=== PATIENT | male | born 1950 | race African-American/Black ===

== ENCOUNTER 2019-01-22 18:30 | Inpatient (IN) | payer MEDICARE, OTHER ==
[~2019-01-22] VITALS: Ht 185.4 cm; Wt 81.6 kg
[2019-01-22] MEDS ORDERED: ACETAMINOPHEN 650MG SUPP PR STA (19:01)
[2019-01-22] MEDS ORDERED: LORAZEPAM 2MG/ML CPJ ONE (19:10)
[2019-01-22 19:12] LABS: BASOPHILS % 0.1 % (0.0-2.0); HEMATOCRIT. 42.8 % (42.0-52.0); HEMOGLOBIN. 13.6 g/dL (14.0-18.0); LYMPHOCYTES % 14.9 % (20.0-50.0); MEAN CORPUSCULAR HEMOGLOBIN 30.2 pg (28.0-32.0); MEAN PLATELET VOLUME 10.3 fl (7.4-10.4); MONOCYTES % 5.4 % (2.0-8.0); NEUTROPHILS % 79.6 % (40.0-76.0); PLATELET 214 x1000/uL (130-400); RED CELL DISTRIBUTION WIDTH 15.9 % (11.6-14.6)
[2019-01-22] MEDS ORDERED: LORAZEPAM 2MG/ML CPJ IV ONE (19:15)
[2019-01-22] MEDS ORDERED: SODIUM CHLORIDE 0.9% 1000ML BAG (SEPSIS BOLUS) IV ONE (19:15)
[2019-01-22] MEDS ORDERED: PIPERACILLIN/TAZ 3.375G PREMIX 50 ML IV ONE (19:15)
[2019-01-22] MEDS ORDERED: VANCOMYCIN 1 G PREMIX 200 ML IV ONE (19:15)
[2019-01-22 19:19] LABS: CHLORIDE 131 mEq/L (98-107)
[2019-01-22 19:28] LABS: INR 1.4
[2019-01-22] MEDS ORDERED: LEVETIRACETAM 1000MG/100ML 100 ML IV ONE (20:45)
[2019-01-23 00:05] LABS: CLARITY URINE CLEAR (CLEAR); COLOR URINE YELLOW (YELLOW); KETONES URINE NEGATIVE (NEGATIVE); LEUKOCYTE ESTERASE URINE TRACE (NEGATIVE); NITRITE URINE NEGATIVE (NEGATIVE); OCCULT BLOOD URINE 2+ (NEGATIVE); PROTEIN URINE TRACE (NEGATIVE); SPECIFIC GRAVITY URINE 1.031 (1.005-1.030)
[2019-01-23] MEDS: SODIUM CHLORIDE 0.9% 1,000 ML IV SCH ×2 (07:04→12:46)
[2019-01-23] MEDS ORDERED: CLONIDINE 0.1MG TABLET PO PRN (08:30)
[2019-01-23] MEDS ORDERED: HYDROCODONE/ACETAMINOPHEN 10/325MG TABLET PO PRN (08:30)
[2019-01-23] MEDS ORDERED: MAGNESIUM/ALUMINUM HYDROXIDE/SIMETHICONE 30ML UDC PO PRN (08:30)
[2019-01-23] MEDS ORDERED: NA PHOS,M-B/NA PHOS,DI-BA ENEMA 118ML PR PRN (08:30)
[2019-01-23] MEDS ORDERED: ONDANSETRON HCL 4MG/2ML INJ IV PRN (08:30)
[2019-01-23] MEDS ORDERED: IPRATROPIUM/ALBUTEROL 0.5-3(2.5)MG/3ML NEB INH PRN (08:30)
[2019-01-23] MEDS ORDERED: VANCOMYCIN 1 G PREMIX 200 ML IV SCH (08:30)
[2019-01-23] MEDS ORDERED: GUAIFENESIN 200MG/10ML SUGAR FREE UDC PO PRN (08:30)
[2019-01-23] MEDS ORDERED: DIPHENHYDRAMINE 50MG/ML VIAL IV PRN (08:30)
[2019-01-23] MEDS ORDERED: ACETAMINOPHEN 650MG/20.3ML UDC GT PRN (08:30)
[2019-01-23] MEDS ORDERED: ACETAMINOPHEN 325MG TABLET PO PRN (08:30)
[2019-01-23] MEDS ORDERED: ACETAMINOPHEN 650MG SUPP PR PRN (08:30)
[2019-01-23] MEDS ORDERED: HYDROCODONE/ACETAMINOPHEN 5/325MG TABLET PO PRN (08:30)
[2019-01-23] MEDS ORDERED: DOCUSATE SODIUM 100MG CAPSULE PO PRN (08:30)
[2019-01-23] MEDS ORDERED: NOREPINEPHRINE 4 MG in DEXT 5% WATER 246 ML IV ONE (08:45)
[2019-01-23 08:52] LABS: BASOPHILS % 0.2 % (0.0-2.0); HEMATOCRIT. 43.9 % (42.0-52.0); HEMOGLOBIN. 13.8 g/dL (14.0-18.0); MEAN CORPUSCULAR HEMOGLOBIN 29.9 pg (28.0-32.0); MEAN CORPUSCULAR VOLUME 94.9 fL (80.0-94.0); MEAN PLATELET VOLUME 9.7 fl (7.4-10.4); MONOCYTES % 6.5 % (2.0-8.0); NEUTROPHILS % 79.3 % (40.0-76.0); PLATELET 170 x1000/uL (130-400); RED BLOOD CELL COUNT 4.62 mill/uL (4.7-6.1); RED CELL DISTRIBUTION WIDTH 15.7 % (11.6-14.6)
[2019-01-23 08:54] LABS: CHLORIDE 134 mEq/L (98-107)
[2019-01-23 09:48] LABS: BG CARBOXYHEMOGLOBIN 0.2 % (0.5-1.5); BG DEOXYHEMOGLOBIN 3.2 % (0.0-5.0); BG FRACTION INSPIRED OXYGEN 99.8; BG METHEMOGLOBIN 0.2 % (0.0-1.5); BG OXYGEN SATURATION 96.8 % (92.0-98.5); BG OXYHEMOGLOBIN 96.4 % (94.0-97.0); BG PCO2 31.1 mmHg (35.0-45.0); BG PH 7.448 (7.350-7.450); BG PO2 86.6 mmHg (75.0-100.0); BG SAMPLE SITE RIGHT RADIAL; BG TOTAL HEMOGLOBIN 13.9 g/dL (12.0-18.0); BG VENT MODE MASK - NRB
[2019-01-23 12:00] VITALS: BP 52/27
[2019-01-23] MEDS ORDERED: DEXTROSE 5% WATER 1,000 ML IV ONE (12:30)
[2019-01-23] MEDS ORDERED: LORAZEPAM 2MG/ML CPJ IV PRN (12:30)
[2019-01-23] MEDS ORDERED: IPRATROPIUM/ALBUTEROL 0.5-3(2.5)MG/3ML NEB INH SCH (12:30)
[2019-01-23 13:00] VITALS: BP 52/27
[2019-01-23] MEDS ORDERED: LEVETIRACETAM 500 MG in SODIUM CHLORIDE 0.9% 100 ML IV NR (13:30)
[2019-01-23] MEDS: SODIUM CHLORIDE 0.9% INJ 3ML FLUSH IVF SCH (14:00)
[2019-01-23 16:00] VITALS: BP 89/64
[2019-01-23] MEDS: PIPERACILLIN/TAZ 3.375G PREMIX 50 ML IV SCH (16:37)
[2019-01-23] MEDS: ENOXAPARIN 40MG/0.4ML SYR SUBCUT SCH (16:38)
[2019-01-23 16:56] LABS: CHLORIDE 138 mEq/L (98-107)
[2019-01-23 17:02] LABS: CREATINE KINASE MB FRACTION 10.6 ng/mL (0.5-3.6)
[2019-01-23] MEDS ORDERED: RISP2 MT (17:26)
[2019-01-23] MEDS ORDERED: PARO25TA15 MT (17:26)
[2019-01-23] MEDS ORDERED: PIMA17TA MT (17:26)
[2019-01-23] MEDS ORDERED: MEMA10TA2 MT (17:26)
[2019-01-23] MEDS ORDERED: TRAZ-213 MT (17:26)
[2019-01-23] MEDS ORDERED: TAMS0.4C31 MT (17:26)
[2019-01-23] MEDS ORDERED: ATOR20TA65 MT (17:26)
[2019-01-23] MEDS ORDERED: DOCU-138 MT (17:26)
[2019-01-23] MEDS ORDERED: MULT-1116 MT (17:26)
[2019-01-23] MEDS ORDERED: ALLO300T2 MT (17:26)
[2019-01-23] MEDS ORDERED: FINA1TAB18 MT (17:26)
[2019-01-23] MEDS: DEXTROSE 5% WATER 1,000 ML IV SCH (18:08)
[2019-01-23 20:00] VITALS: BP 102/67
[2019-01-23] MEDS ORDERED: POTASSIUM CHLORIDE INJ 40 MEQ in DEXT 5% WATER 500 ML IV NR (20:00)
[2019-01-23] MEDS: LEVETIRACETAM 500 MG in SODIUM CHLORIDE 0.9% 100 ML IV SCH (21:20)
[2019-01-23] MEDS: VANCOMYCIN 1250MG in DEXTROSE 5% WATER 250ML IV SCH (22:24)
[2019-01-23 23:46] LABS: CREATINE KINASE MB FRACTION 12.7 ng/mL (0.5-3.6)
[2019-01-24] VITALS: BP 99/70
[2019-01-24] MEDS: DEXTROSE 5% WATER 1,000 ML IV SCH ×4 (02:29→22:55)
[2019-01-24] MEDS: PIPERACILLIN/TAZ 3.375G PREMIX 50 ML IV SCH ×6 (02:34→22:56)
[2019-01-24 04:00] VITALS: BP 101/65
[2019-01-24] MEDS: SODIUM CHLORIDE 0.9% INJ 3ML FLUSH IVF SCH ×3 (06:00→22:57)
[2019-01-24 06:51] LABS: BASOPHILS % 0.1 % (0.0-2.0); HEMATOCRIT. 41.3 % (42.0-52.0); HEMOGLOBIN. 13.2 g/dL (14.0-18.0); LYMPHOCYTES % 15.6 % (20.0-50.0); MEAN CORPUSCULAR HEMOGLOBIN 30.1 pg (28.0-32.0); MONOCYTES % 3.6 % (2.0-8.0); NEUTROPHILS % 80.7 % (40.0-76.0); PLATELET 149 x1000/uL (130-400); RED BLOOD CELL COUNT 4.39 mill/uL (4.7-6.1); RED CELL DISTRIBUTION WIDTH 15.4 % (11.6-14.6)
[2019-01-24 07:04] LABS: CHLORIDE 136 mEq/L (98-107)
[2019-01-24 07:11] LABS: PHOSPHORUS 2.1 mg/dL (2.5-4.9)
[2019-01-24 07:13] LABS: LDL CHOLESTEROL 35 mg/dL (5-100)
[2019-01-24 07:16] LABS: HDL CHOLESTEROL 10 mg/dL (40-59)
[2019-01-24 08:00] VITALS: BP_SYST 59
[2019-01-24] MEDS: LEVETIRACETAM 500 MG in SODIUM CHLORIDE 0.9% 100 ML IV SCH ×2 (08:15→21:22)
[2019-01-24] MEDS: VANCOMYCIN 1250MG in DEXTROSE 5% WATER 250ML IV SCH ×2 (09:49→20:19)
[2019-01-24] MEDS ORDERED: KCL 20MEQ/100ML PREMIX 100 ML IV NR (10:30)
[2019-01-24 12:00] VITALS: BP 110/67
[2019-01-24] MEDS: ENOXAPARIN 40MG/0.4ML SYR SUBCUT SCH (12:02)
[2019-01-24 16:00] VITALS: BP 119/54
[2019-01-24 20:00] VITALS: BP 176/69
[2019-01-24] MEDS: MORPHINE SULFATE 4 MG/ML CPJ (NOT FOR IM USE) IV PRN (20:21)
[2019-01-25] VITALS: BP 98/49
[2019-01-25 04:00] VITALS: BP 126/67
[2019-01-25] MEDS: PIPERACILLIN/TAZ 3.375G PREMIX 50 ML IV SCH ×2 (04:06→13:09)
[2019-01-25] MEDS: MORPHINE SULFATE 4 MG/ML CPJ (NOT FOR IM USE) IV PRN (04:32)
[2019-01-25 05:59] LABS: BASOPHILS % 0.2 % (0.0-2.0); EOSINOPHILS % 0.1 % (0.0-5.0); HEMATOCRIT. 41.2 % (42.0-52.0); HEMOGLOBIN. 13.3 g/dL (14.0-18.0); LYMPHOCYTES % 12.7 % (20.0-50.0); MEAN CORPUSCULAR HEMOGLOBIN 30.1 pg (28.0-32.0); MEAN CORPUSCULAR VOLUME 93.2 fL (80.0-94.0); MEAN PLATELET VOLUME 10.2 fl (7.4-10.4); MONOCYTES % 2.6 % (2.0-8.0); NEUTROPHILS % 84.4 % (40.0-76.0); PLATELET 168 x1000/uL (130-400); RED BLOOD CELL COUNT 4.43 mill/uL (4.7-6.1); RED CELL DISTRIBUTION WIDTH 15.1 % (11.6-14.6)
[2019-01-25] MEDS: SODIUM CHLORIDE 0.9% INJ 3ML FLUSH IVF SCH ×2 (06:20→14:20)
[2019-01-25 06:28] LABS: CHLORIDE 126 mEq/L (98-107)
[2019-01-25 06:45] LABS: PHOSPHORUS 1.8 mg/dL (2.5-4.9)
[2019-01-25 08:00] VITALS: BP 101/67
[2019-01-25] MEDS: VANCOMYCIN 1250MG in DEXTROSE 5% WATER 250ML IV SCH (08:02)
[2019-01-25] MEDS: LEVETIRACETAM 500 MG in SODIUM CHLORIDE 0.9% 100 ML IV SCH ×2 (10:02→22:01)
[2019-01-25 11:15] VITALS: BP 98/52
[2019-01-25] MEDS ORDERED: MORPHINE SULFATE 4 MG/ML CPJ (NOT FOR IM USE) IV PRN (13:45)
[2019-01-25 16:00] VITALS: BP 76/51
[2019-01-25 20:00] VITALS: BP 75/50
[2019-01-26] VITALS: BP 82/51
[2019-01-26 04:00] VITALS: BP 85/52
[2019-01-26 08:00] VITALS: BP 106/62
[2019-01-26 12:00] VITALS: BP 89/64
[2019-01-26 13:17] VITALS: BP 103/63
== END 2019-01-26 14:52 | DRG 871 ==
LOC: ER 19:21 → 6EST 20:47 → EDBEDREQ 20:49 → EDBEDREQSVC 20:49 → EDBEDREQTM 20:49 → CANRESERV 01-23 07:55 → ENRESERV 01-23 07:55 → EDBEDREQSVC 01-23 09:04 → ENRESERV 01-23 11:07 → 6EST 01-23 12:45
PROVIDERS: ADMIT Family Medicine; ATTEND Family Medicine
DX: A41.9 Sepsis, unspecified organism (principal); J69.0 Pneumonitis due to inhalation of food and vomit; G93.41 Metabolic encephalopathy; I21.4 Non-ST elevation (NSTEMI) myocardial infarction; J96.01 Acute respiratory failure with hypoxia; E43 Unspecified severe protein-calorie malnutrition; E87.1 Hypo-osmolality and hyponatremia; N17.9 Acute kidney failure, unspecified; N39.0 Urinary tract infection, site not specified; D68.9 Coagulation defect, unspecified; E87.0 Hyperosmolality and hypernatremia; E87.2 Acidosis; I50.40 Unspecified combined systolic (congestive) and diastolic (congestive) heart failure; R65.20 Severe sepsis without septic shock; E87.6 Hypokalemia; E86.0 Dehydration; F20.9 Schizophrenia, unspecified; E78.00 Pure hypercholesterolemia, unspecified; F03.90 Unspecified dementia, unspecified severity, without behavioral disturbance, psychotic disturbance, mood disturbance, and anxiety; G40.909 Epilepsy, unspecified, not intractable, without status epilepticus; Z51.5 Encounter for palliative care; Z66 Do not resuscitate; F41.9 Anxiety disorder, unspecified; Z82.49 Family history of ischemic heart disease and other diseases of the circulatory system; Z79.899 Other long term (current) drug therapy
CPT/HCPCS: 36415; 36600; 71045; 76770; 80048; 80061; 80202; 82375; 82550; 82553; 82805; 82962; 83605; 83735; 83880; 84100; 84145; 84484; 93005; 96365; 96367; 96368; 96375; 99291; J1650; J1953; J2060; J2270; J2543; J3370; J3480; J7030; J7050; J7060; J7070